=== PATIENT | female | born 1975 | race Caucasian/White ===

== ENCOUNTER 2020-03-13 13:59 | Emergency (ER) | payer OTHER ==
[2020-03-13 14:14] VITALS: BP 158/81; PULSE 78; TEMP 99.3; BMI 25.7
[2020-03-13] MEDS ORDERED: ACETAMINOPHEN 325 MG TABLET (FP) PO ONE (14:37)
[2020-03-13] MEDS ORDERED: ACETAMINOPHEN 325 MG TABLET (FP) ONE (14:55)
== END 2020-03-13 15:25 | disposition home or self-care (01) ==
LOC: FER 13:59
DX: M23.92 Unspecified internal derangement of left knee (principal); S89.92XA Unspecified injury of left lower leg, initial encounter
CPT/HCPCS: 73562-TC-LT-FY; 99284-25

== ENCOUNTER 2021-10-02 17:40 | Emergency (ER) | payer OTHER ==
[2021-10-02 17:57] VITALS: BP 125/84; PULSE 90; RESP 18; TEMP 98.9; BMI 23.8
[2021-10-02] MEDS ORDERED: SODIUM CHLORIDE 1,000 ML IV ONE ×2 (18:18→19:04)
[2021-10-02 18:37] LABS: HEMATOCRIT 40.6 % (32.4-45.2); HEMOGLOBIN 14.5 G/dL (10.7-15.3); MCH 31.8 pg (25.7-33.7); MCHC 35.6 g/dl (32.0-36.0); MEAN CELL VOLUME 89.5 fl (80-96); MEAN PLT VOLUME 7.7 fl (7.5-11.1); PLATELET COUNT 212.7 10^3/uL (134-434); RBC 4.54 10^6/uL (3.60-5.2); RDW 13.4 % (11.6-15.6); WHITE BLOOD COUNT 7.1 10^3/uL (4.0-10.8)
[2021-10-02 18:55] LABS: ALBUMIN 3.6 g/dl (3.4-5.0); BILIRUBIN,TOTAL 0.7 mg/dl (0.2-1); CALCIUM 8.6 mg/dl (8.5-10); CREATININE 0.9 mg/dl (0.55-1.3); TOT PROT 6.5 g/dl (6.4-8.2)
[2021-10-02] MEDS ORDERED: POTASSIUM CHLORIDE TABS 20 MEQ TABLET.ER (FP) PO ONE ×2 (18:56→19:02)
[2021-10-02 19:00] LABS: PLATELET ESTIMATE ADEQUATE
[2021-10-02] MEDS ORDERED: CIPROFLOXACIN 500 MG TABLET (RESTRICTED TO ID) PO ONE (19:04)
[2021-10-02] MEDS ORDERED: CIPROFLOXACIN 250 MG TABLET (RESTRICTED TO ID) PO ONE (19:06)
== END 2021-10-02 20:31 | disposition home or self-care (01) ==
LOC: FER 17:40
PROC: 3E0337Z Introduction of Electrolytic and Water Balance Substance into Peripheral Vein, Percutaneous Approach (ICD-10-PCS; principal; 2021-10-02)
PROC: 3E0337Z Introduction of Electrolytic and Water Balance Substance into Peripheral Vein, Percutaneous Approach (ICD-10-PCS; 2021-10-02)
DX: R19.7 Diarrhea, unspecified (principal); E87.6 Hypokalemia
CPT/HCPCS: 36415; 80053; 85027; 99284-25